=== PATIENT | male | born 1965 | race Caucasian/White ===

== ENCOUNTER 2021-06-19 11:57 | Emergency (ER) | payer OTHER ==
[2021-06-19] MEDS ORDERED: ZOFRAN4 MG PO (12:45)
== END 2021-06-19 12:58 | disposition home or self-care (01) ==
LOC: ER1 11:57
DX: U07.1 COVID-19 (principal); Z88.6 Allergy status to analgesic agent; Z88.0 Allergy status to penicillin; Z86.711 Personal history of pulmonary embolism
CPT/HCPCS: 99283